=== PATIENT | female | born 1945 | race Caucasian/White ===

== ENCOUNTER 2022-12-27 12:27 | Emergency (ER) | payer MEDICARE, OTHER ==
[~2022-12-27] VITALS: Ht 157.5 cm; Wt 45.7 kg
[2022-12-27] MEDS ORDERED: CELEXA40 MG PO (12:54)
[2022-12-27] MEDS ORDERED: SIMVASTATIN10 MG PO (12:55)
[2022-12-27] MEDS ORDERED: MELATONIN10 M2 PO (12:55)
--- NOTE | 2022-12-29 21:59 | EKG ---
[facility] [address] [facility] [place] [address] Signed Normal sinus rhythm Septal infarct , age undetermined Abnormal ECG No previous ECGs available Confirmed by Ina Hightower MD () on 12/29/2022 9:59:03 PM Electronically Signed By: INA HIGHTOWER MD 12/29/222158 PATIENT NAME: VASU NAVARRETE Electrocardiogram DATE OF : 41 PHYSICIAN: INA HIGHTOWER MD REPORT #: [id number] REPORT IS CONFIDENTIAL AND NOT TO BE RELEASED WITHOUT AUTHORIZATION
== END 2022-12-27 13:44 | disposition home or self-care (01) ==
LOC: ED 12:27
DX: R07.89 Other chest pain (principal); Z79.899 Other long term (current) drug therapy
CPT/HCPCS: 36415; 71045; 80053; 84484; 85025; 93005; 93010; 99285-25